=== PATIENT | male | born 2000 | race Caucasian/White ===

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

== ENCOUNTER 2021-06-05 14:16 | Outpatient (CLI) | payer BC | END 2021-06-05 14:17 | disposition home or self-care (01) | LOC: BICRAD 14:16 | PROVIDERS: ATTEND Family Medicine | DX: J20.9 Acute bronchitis, unspecified (principal); R05.1 Acute cough | CPT/HCPCS: 71046 ==